=== PATIENT | female | born 1975 | race Caucasian/White ===

== ENCOUNTER 2024-01-21 09:35 | Emergency (ER) | payer BC ==
[~2024-01-21] VITALS: Ht 162.6 cm; Wt 70.3 kg
[2024-01-21] MEDS ORDERED: ACYC-108 PO (10:27)
[2024-01-21 10:50] VITALS: BP 110/70; TEMP 98.5; O2SAT 100
== END 2024-01-21 10:51 | disposition home or self-care (01) ==
LOC: ER 09:35
DX: L03.211 Cellulitis of face (principal)